=== PATIENT | female | born 1970 | race Caucasian/White ===

== ENCOUNTER → 2017-12-03 07:39 | Outpatient (CLI) | payer MEDICARE, MEDICAID, SELFPAY ==
--- NOTE | 2017-12-03 10:08 | NEURO ---
NCS and/or EMG Patient Report Ordering Doctor: Gloria Saleh DATE OF SERVICE: 12/03/17 This is a bilateral lower extremity nerve conduction study and a right lower extremity EMG performed on this 47-year-old female with a history of intermittent numbness and tingling in both legs. She says the symptoms are worse with positions such as crossing her legs. It is the symptoms while she is driving. Symptoms of been present since for several months. There is a recent diagnosis of diabetes, she is not sure of her blood sugars but prior to diagnosis there were some sugars in the 300s. Bilateral lower extremity sensory and motor nerve conduction study is performed. The sural sensory distal latencies and amplitudes are normal. The medial and lateral plantar distal latencies and amplitudes are normal. Motor responses from the common peroneal motor nerves and the tibial motor nerves demonstrate normal latencies amplitudes and conduction velocities. Tibial and common peroneal F waves are normal. The H reflex responses show mildly decreased amplitude. Right lower extremity needle electromyography was performed. Muscles evaluated included the tensor digitorum brevis, abductor hallucis, medial gastrocnemius, anterior tibialis, vastus medialis, and vastus lateralis muscles. All muscles demonstrated normal insertional activity with absence of pathologic spontaneous activity. Motor unit potential recruitment pattern and amplitude was normal in all muscles tested. Impression: There is evidence of mild peripheral neuropathy, likely due to the patient's history of diabetes. There is no evidence of mononeuropathy or radiculopathy.
== END ==
PROVIDERS: Family Provider Preventive Medicine Occupational Medicine; PCP Preventive Medicine Occupational Medicine; Visit Provider Nurse Practitioner Acute Care
DX: R20.0 Anesthesia of skin (principal); R20.2 Paresthesia of skin
CPT/HCPCS: 95886; 95911

== ENCOUNTER → 2017-12-04 07:20 | Outpatient (CLI) | payer MEDICARE, MEDICAID, SELFPAY ==
--- NOTE | 2017-12-04 09:35 | NEURO ---
NCS and/or EMG Patient Report Ordering Doctor: Gloria Saleh DATE OF SERVICE: 12/04/17 This is a right upper extremity nerve conduction study performed on this 47-year-old female with a diagnosis of neuropathy. There is a history of diabetes, unsure hemoglobin A1c values. Right upper extremity sensory and motor nerve conduction study is performed. Median motor and sensory, ulnar motor and sensory and radial sensory responses are normal. Median and ulnar F waves are normal. Impression this is a normal nerve conduction study of the right upper extremity.
--- NOTE | 2017-12-04 09:38 | NEURO_ITS ---
NCS and/or EMG Patient Report Ordering Doctor: Gloria Saleh DATE OF SERVICE: 12/04/17 This is a right upper extremity nerve conduction study performed on this 47-year -old female with a diagnosis of neuropathy. There is a history of diabetes, unsure hemoglobin A1c values. Right upper extremity sensory and motor nerve conduction study is performed. Median motor and sensory, ulnar motor and sensory and radial sensory responses are normal. Median and ulnar F waves are normal. Impression this is a normal nerve conduction study of the right upper extremity.
== END ==
PROVIDERS: Family Provider Preventive Medicine Occupational Medicine; PCP Preventive Medicine Occupational Medicine; Visit Provider Nurse Practitioner Acute Care
DX: R20.0 Anesthesia of skin (principal); R20.2 Paresthesia of skin
CPT/HCPCS: 95910